=== PATIENT | male | born 1960 | race Caucasian/White ===

== ENCOUNTER 2018-05-29 18:41 | Emergency (ER) | payer OTHER ==
[~2018-05-29] VITALS: Ht 182.9 cm; Wt 101.6 kg
[~2018-05-29 18:41] MED LIST: ADULT LOW DOSE81 MG; BROMDAY1.7 ML OP; BYSTOLIC10 MG PO; COLACE100 MG PO; DUREZOL5 ML OP; FENOGLIDE40 MG PO; FISH OIL SOFTG1 EACH PO; FLEXERIL; FLEXERIL PO; HYDROCODON-ACE1 EAC7; MEDROLDOSEPACK PO; NORCO 5-325 TA1 EACH PO; OMEPRAZOLE; PANTOPRAZOLE SO40 M1 PO; PERCOCET 5-3251 EACH PO; PROCTOCREAM-HC30 G1 RC; TOPROL XL25 MG; ZETIA10 MG PO; ZOCOR
[2018-05-29] MEDS ORDERED: METFORMIN HCL500 MG PO (19:05)
[2018-05-29] MEDS ORDERED: MELATONIN5 M1 PO (19:05)
[2018-05-29] MEDS ORDERED: HYDROCODONE-AP1 EAC6 PO (19:35)
[2018-05-29] MEDS ORDERED: IBUPROFEN 800800 M1 PO (19:35)
[2018-05-29 19:58] VITALS: BP 149/83
== END 2018-05-29 19:59 | disposition home or self-care (01) ==
LOC: M.ERS 18:41
DX: M25.561 Pain in right knee (principal); E11.9 Type 2 diabetes mellitus without complications; F17.200 Nicotine dependence, unspecified, uncomplicated

== ENCOUNTER 2019-08-02 16:24 | Emergency (ER) | payer OTHER ==
[~2019-08-02] VITALS: Ht 182.9 cm; Wt 90.7 kg
[~2019-08-02 16:24] MED LIST changes: +HYDROCODONE-AP1 EAC6 PO; +IBUPROFEN 800800 M1 PO; +MELATONIN5 M1 PO; +METFORMIN HCL500 MG PO
[2019-08-02] MEDS ORDERED: LOPRESSOR50 PO (16:35)
[2019-08-02] MEDS ORDERED: CELEBREX 200 M200 M1 PO (16:35)
[2019-08-02] MEDS ORDERED: CLARITIN10 MG PO (16:36)
[2019-08-02] MEDS ORDERED: PRILOSEC10 MG PO (16:36)
[2019-08-02 17:16] LABS: ABSOLUTE BASOPHILS 0.1 thou/uL (0.0-0.2); ABSOLUTE EOSINOPHILS 0.1 thou/uL (0.0-0.7); ABSOLUTE MONOCYTES 0.7 thou/uL (0.0-1.2); ABSOLUTE NEUTROPHILS 5.7 thou/uL (1.6-8.1); EOSINOPHILS 1.6 %; HEMATOCRIT 40.9 % (42.0-52.0); HEMOGLOBIN 14.2 gm/dL (14.0-18.0); LYMPHOCYTES 23.4 %; MCH 31.7 pg (26.0-34.0); MCHC 34.8 g/dL (28.0-37.0); MCV 91.2 fL (80.0-100.0); MONOCYTES 8.1 %; NUCLEATED RBCS 0 /100WBC; PLATELET COUNT* 287 thou/uL (150-400); POLYS 65.9 %; RBC 4.49 mil/uL (4.50-6.00); RDW-CV 12.4 % (10.5-14.5); WBC 8.7 thou/uL (4.0-11.0)
[2019-08-02 17:29] LABS: CREATININE 1.1 mg/dL (0.6-1.3)
[2019-08-02 17:34] LABS: ALBUMIN 3.7 g/dL (3.4-5.0); APTT 26.4 Seconds (25.0-31.3); PROTIME 10.6 Seconds (9.20-11.50); TOTAL BILIRUBIN 0.2 mg/dL (<0.1-1.0); TOTAL PROTEIN 6.9 g/dL (6.4-8.2)
[2019-08-02 18:10] LABS: URINE BILIRUBIN NEGATIVE (Negative); URINE BLOOD NEGATIVE (Negative); URINE CLARITY CLEAR; URINE COLOR YELLOW; URINE GLUCOSE-RANDOM NEGATIVE (Negative); URINE KETONES NEGATIVE (Negative); URINE LEUKOCYTES-REFLEX TRACE (Negative); URINE NITRITE-REFLEX NEGATIVE (Negative); URINE PROTEIN NEGATIVE (Negative); URINE UROBILINOGEN 0.2 E.U./dl (0.2-1.0)
[2019-08-02 18:27] LABS: BACTERIA-REFLEX None Seen /HPF (None Seen); CASTS None Seen /LPF (None Seen); CRYSTALS None Seen /LPF (None Seen); MUCUS None Seen strn/LPF (None Seen); SQUAMOUS 4-10 Moderate /LPF (0-3); URINE RBC None Seen /HPF (0-2); URINE WBC-REFLEX 0-5 Rare /HPF (0-5)
[2019-08-02] MEDS ORDERED: MEDROLDOSEPACK PO (18:46)
[2019-08-02] MEDS ORDERED: VENTOLIN HFA 1818 GM INH (18:46)
[2019-08-02] MEDS ORDERED: AZITHROMYCIN500 MG PO (18:46)
[2019-08-02 19:21] VITALS: BP 136/83
== END 2019-08-02 19:22 | disposition home or self-care (01) ==
LOC: M.ERS 16:24
PROVIDERS: Nurse Practitioner Family
DX: K92.0 Hematemesis (principal); N28.1 Cyst of kidney, acquired; K62.5 Hemorrhage of anus and rectum; E11.9 Type 2 diabetes mellitus without complications; I10 Essential (primary) hypertension; Z88.1 Allergy status to other antibiotic agents; Z90.49 Acquired absence of other specified parts of digestive tract

== ENCOUNTER 2019-10-20 23:05 | Emergency (ER) | payer OTHER ==
[~2019-10-20] VITALS: Ht 182.9 cm; Wt 90.7 kg
[~2019-10-20 23:05] MED LIST changes: +AZITHROMYCIN500 MG PO; +CELEBREX 200 M200 M1 PO; +CLARITIN10 MG PO; +LOPRESSOR50 PO; +PRILOSEC10 MG PO; +VENTOLIN HFA 1818 GM INH; -ZOCOR; +ZOCOR40 MG PO
[2019-10-20] MEDS ORDERED: PRINIVIL20 M1 PO (23:19)
[2019-10-20] MEDS ORDERED: SILDENAFIL CIT100 MG PO (23:22)
[2019-10-20] MEDS ORDERED: PRILOSEC OTC20 MG PO (23:23)
[2019-10-20] MEDS ORDERED: SUPER THERAVIT1 EACH PO (23:24)
[2019-10-21] MEDS ORDERED: HYDROCODON-ACE1 EAC7 PO (01:54)
[2019-10-21] MEDS ORDERED: MEDROLDOSEPACK PO (01:54)
[2019-10-21 02:23] VITALS: BP 144/86
== END 2019-10-21 02:26 | disposition home or self-care (01) ==
LOC: M.ERS 23:05
DX: M94.251 Chondromalacia, right hip (principal); I10 Essential (primary) hypertension; E11.9 Type 2 diabetes mellitus without complications; F17.210 Nicotine dependence, cigarettes, uncomplicated; Z98.52 Vasectomy status; Z90.49 Acquired absence of other specified parts of digestive tract; Z88.1 Allergy status to other antibiotic agents

== ENCOUNTER 2019-10-24 10:36 | Emergency (ER) | payer OTHER ==
[~2019-10-24] VITALS: Ht 182.9 cm; Wt 90.7 kg
[~2019-10-24 10:36] MED LIST changes: +HYDROCODON-ACE1 EAC7 PO; +PRILOSEC OTC20 MG PO; +PRINIVIL20 M1 PO; +SILDENAFIL CIT100 MG PO; +SUPER THERAVIT1 EACH PO
[2019-10-24] MEDS ORDERED: NORCO 5-325 TA1 EAC2 PO (13:10)
[2019-10-24] MEDS ORDERED: LIDODERM1 EACH TRANSDERM (13:10)
[2019-10-24 13:32] VITALS: BP 138/81
== END 2019-10-24 13:32 | disposition home or self-care (01) ==
LOC: M.ERS 10:36
DX: M54.16 Radiculopathy, lumbar region (principal); M25.551 Pain in right hip; M79.661 Pain in right lower leg; I10 Essential (primary) hypertension; E11.9 Type 2 diabetes mellitus without complications; M19.90 Unspecified osteoarthritis, unspecified site; F17.200 Nicotine dependence, unspecified, uncomplicated; Z90.49 Acquired absence of other specified parts of digestive tract; Z88.6 Allergy status to analgesic agent; Z90.79 Acquired absence of other genital organ(s)